=== PATIENT | male | born 1945 | race African-American/Black ===

== ENCOUNTER 2017-07-02 01:54 | Emergency (ER) | payer OTHER ==
[~2017-07-02] VITALS: Ht 180.3 cm; Wt 104.0 kg
[2017-07-02] MEDS ORDERED: DOXA2TAB PO (02:01)
[2017-07-02] MEDS ORDERED: CYM20 PO (02:02)
[2017-07-02] MEDS ORDERED: KETOROLAC 15MG/ML VIAL IM ONE (03:00)
[2017-07-02] MEDS ORDERED: DIAZEPAM 5 MG/ML 2ML CPJ IM ONE (03:00)
[2017-07-02] MEDS ORDERED: DIAZEPAM 5 MG/ML 2ML CPJ IM SCH (03:50)
[2017-07-02 04:25] VITALS: BP 146/84
== END 2017-07-02 05:22 | disposition home or self-care (01) ==
LOC: ER 01:54
DX: M62.838 Other muscle spasm (principal); M54.2 Cervicalgia; I10 Essential (primary) hypertension
CPT/HCPCS: 96372; 99284; J1885

== ENCOUNTER 2018-03-12 18:14 | Emergency (ER) | payer OTHER, MEDICARE ==
[~2018-03-12] VITALS: Ht 185.4 cm; Wt 118.0 kg
[~2018-03-12 18:14] MED LIST: CYM20 PO; DOXA2TAB PO
[2018-03-12] MEDS ORDERED: ONDANSETRON HCL 4MG/2ML INJ IV ONE (18:45)
[2018-03-12] MEDS ORDERED: MORPHINE SULFATE 4 MG/ML CPJ (NOT FOR IM USE) IV ONE ×2 (18:45→21:00)
[2018-03-12 19:21] LABS: HEMATOCRIT. 38.8 % (42.0-52.0); MEAN CORPUSCULAR HEMOGLOBIN 29.4 pg (28.0-32.0); MEAN CORPUSCULAR VOLUME 87.6 fL (80.0-94.0); PLATELET 292 x1000/uL (130-400); RED BLOOD CELL COUNT 4.43 mill/uL (4.7-6.1); RED CELL DISTRIBUTION WIDTH 13.9 % (11.6-14.6)
[2018-03-12 19:27] LABS: CHLORIDE 104 mEq/L (98-107)
[2018-03-12 21:25] LABS: PLATELET ESTIMATE NORMAL
[2018-03-12] MEDS ORDERED: METHYLPREDNISOLONE SOD SUCC 125 MG/2 ML VIAL IV ONE (22:45)
[2018-03-13 02:34] VITALS: BP 157/89
== END 2018-03-13 02:45 | disposition left against medical advice (07) ==
LOC: ER 18:14
DX: M54.5 Low back pain (principal); F17.200 Nicotine dependence, unspecified, uncomplicated; Z96.651 Presence of right artificial knee joint; Z98.1 Arthrodesis status
CPT/HCPCS: 36415; 51702; 72100; 72148; 80048; 85007; 85027; 96374; 96375; 96376; 99285; J2270; J2405; J2930

== ENCOUNTER 2021-03-03 18:12 | Emergency (ER) | payer MEDICARE, OTHER ==
[~2021-03-03] VITALS: Ht 182.9 cm; Wt 82.0 kg
[2021-03-03 21:07] LABS: BASOPHILS % 0.7 % (0.0-2.0); EOSINOPHILS % 0.9 % (0.0-5.0); HEMATOCRIT. 43.6 % (42.0-52.0); HEMOGLOBIN. 14.7 g/dL (14.0-18.0); LYMPHOCYTES % 22.5 % (20.0-50.0); MEAN CORPUSCULAR HEMOGLOBIN 30.1 pg (28.0-32.0); MEAN CORPUSCULAR VOLUME 89.6 fL (80.0-94.0); MEAN PLATELET VOLUME 8.4 fl (7.4-10.4); MONOCYTES % 6.4 % (2.0-8.0); NEUTROPHILS % 69.5 % (40.0-76.0); PLATELET 169 x1000/uL (130-400); RED BLOOD CELL COUNT 4.87 mill/uL (4.7-6.1); RED CELL DISTRIBUTION WIDTH 15.5 % (11.6-14.6)
[2021-03-03 21:09] LABS: CHLORIDE 113 mEq/L (98-107)
[2021-03-04 00:25] VITALS: BP 129/89
== END 2021-03-04 00:35 | disposition home or self-care (01) ==
LOC: ER 21:37
DX: R55 Syncope and collapse (principal); I10 Essential (primary) hypertension
CPT/HCPCS: 36415; 80048; 85025; 99285

== ENCOUNTER 2021-11-04 03:24 | Emergency (ER) | payer OTHER ==
[~2021-11-04] VITALS: Ht 180.3 cm; Wt 65.0 kg
[2021-11-04] MEDS ORDERED: PSEUDOEPHEDRINE HCL 30MG TABLET PO STA (04:51)
[2021-11-04 05:00] VITALS: BP 149/78
== END 2021-11-04 05:20 | disposition home or self-care (01) ==
LOC: ER 03:24
DX: R09.81 Nasal congestion (principal); Z20.822 Contact with and (suspected) exposure to COVID-19; Z98.890 Other specified postprocedural states
CPT/HCPCS: 71045; 87426; 99284

== ENCOUNTER 2023-01-12 17:39 | Emergency (ER) | payer OTHER ==
[~2023-01-12] VITALS: Ht 182.9 cm; Wt 87.0 kg
[~2023-01-12 17:39] MED LIST changes: +DOXA-14 PO; -DOXA2TAB PO
[2023-01-12 17:40] VITALS: BP 148/85; PULSE 65; RESP 18; TEMP 98.9; O2SAT 98
[2023-01-12 19:22] LABS: BASOPHILS % 0.3 % (0.0-2.0); EOSINOPHILS % 0.3 % (0.0-5.0); HEMATOCRIT. 40.9 % (42.0-52.0); HEMOGLOBIN. 13.8 g/dL (14.0-18.0); LYMPHOCYTES % 11.5 % (20.0-50.0); MEAN CORPUSCULAR HEMOGLOBIN 29.9 pg (28.0-32.0); MEAN CORPUSCULAR VOLUME 88.8 fL (80.0-94.0); MEAN PLATELET VOLUME 7.7 fl (7.4-10.4); MONOCYTES % 6.9 % (2.0-8.0); PLATELET 192 x1000/uL (130-400); RED BLOOD CELL COUNT 4.61 mill/uL (4.7-6.1); RED CELL DISTRIBUTION WIDTH 15.6 % (11.6-14.6)
[2023-01-12 19:25] LABS: CHLORIDE 107 mEq/L (98-107)
[2023-01-12] MEDS ORDERED: MAGNESIUM/ALUMINUM HYDROXIDE/SIMETHICONE 30ML UDC PO STA (23:16)
[2023-01-12] MEDS ORDERED: ONDANSETRON 4MG ODT PO STA (23:16)
[2023-01-12] MEDS ORDERED: VISCOUS LIDOCAINE 2% 15 ML UDC PO STA (23:16)
[2023-01-13] MEDS ORDERED: IBUP-2028 MT (00:43)
[2023-01-13] MEDS ORDERED: PROT40 MT (00:43)
[2023-01-13] MEDS ORDERED: ONDANSETRON 4MG ODT PO NR (01:15)
[2023-01-13] MEDS ORDERED: MAGNESIUM/ALUMINUM HYDROXIDE/SIMETHICONE 30ML UDC PO NR (01:15)
[2023-01-13] MEDS ORDERED: VISCOUS LIDOCAINE 2% 15 ML UDC PO NR (01:15)
[2023-01-13] MEDS ORDERED: LIDOCAINE HCL 20 MG/ML 100ML BOTTLE PO NR (01:45)
== END 2023-01-13 02:00 | disposition home or self-care (01) ==
LOC: ER 17:39
DX: K21.9 Gastro-esophageal reflux disease without esophagitis (principal); K76.89 Other specified diseases of liver; I10 Essential (primary) hypertension; Z98.890 Other specified postprocedural states
CPT/HCPCS: 36415; 71045; 76700; 80053; 85025; 93005; 99285; Q0162

== ENCOUNTER 2023-08-25 03:10 | Emergency (ER) | payer MEDICARE, OTHER ==
[~2023-08-25] VITALS: Ht 170.2 cm; Wt 84.0 kg
[~2023-08-25 03:10] MED LIST changes: +ARIP2TAB16 PO; -CYM20 PO; +DULO60CA64 PO; +IBUP-2028 MT; +LISI20TA31 PO; +PREG50CA64 PO; +PROT40 MT
[2023-08-25 03:12] VITALS: TEMP 98.4; O2SAT 100
[2023-08-25] MEDS ORDERED: GUAIFENESIN 600MG ER TABLET PO ONE (03:30)
[2023-08-25 04:09] LABS: BASOPHILS % 0.7 % (0.0-2.0); EOSINOPHILS % 2.2 % (0.0-5.0); HEMOGLOBIN. 11.8 g/dL (14.0-18.0); LYMPHOCYTES % 48.2 % (20.0-50.0); MEAN CORPUSCULAR HEMOGLOBIN 26.5 pg (28.0-32.0); MEAN CORPUSCULAR HGB CONC 32.7 g/dL (31.0-37.0); MEAN PLATELET VOLUME 7.1 fl (7.4-10.4); MONOCYTES % 13.2 % (2.0-8.0); NEUTROPHILS % 35.7 % (40.0-76.0); PLATELET 261 x1000/uL (130-400); RED BLOOD CELL COUNT 4.44 mill/uL (4.7-6.1); RED CELL DISTRIBUTION WIDTH 22.5 % (11.6-14.6); WHITE BLOOD COUNT 3.3 x1000/uL (4.5-11.0)
[2023-08-25 04:37] LABS: ADD RBC MORPHOLOGY YES; DIFFERENTIAL COMMENT 1
[2023-08-25 04:50] LABS: ALANINE AMINOTRANSFERASE 20 IU/L (10-49); ALBUMIN 4.1 g/dL (3.2-4.8); ASPARTATE AMINOTRANSFERASE 21 IU/L (<34); BILIRUBIN TOTAL 0.3 mg/dL (0.1-1.0); CALCIUM 9.7 mg/dL (8.7-10.4); CARBON DIOXIDE 27 mEq/L (21-32); CHLORIDE 107 mEq/L (98-107); ETHANOL BLOOD < 10 mg/dL (<10); GLUCOSE 95 mg/dL (70-105); POTASSIUM 3.8 mEq/L (3.5-5.1); PROTEIN TOTAL 7.2 g/dL (6.0-8.3); SODIUM 139 mEq/L (136-145); TROPONIN I HIGH SENSITIVITY 7 ng/L (3.0-53); UREA NITROGEN BLOOD 13 mg/dL (9-23)
[2023-08-25 05:06] LABS: ANISOCYTOSIS 1+; PLATELET ESTIMATE NORMAL
[2023-08-25 08:04] VITALS: BP 131/79; PULSE 96; RESP 15
== END 2023-08-25 08:39 | disposition short-term general hospital (02) ==
LOC: ER 03:10
DX: R06.09 Other forms of dyspnea (principal); I48.91 Unspecified atrial fibrillation; Z00.00 Encounter for general adult medical examination without abnormal findings; Z20.822 Contact with and (suspected) exposure to COVID-19
CPT/HCPCS: 36415; 71045; 80053; 80320; 83880; 84484; 85025; 87426; 93005; 99285; G0480

== ENCOUNTER 2024-03-23 10:41 | Inpatient (IN) | payer MEDICARE, OTHER ==
[~2024-03-23] VITALS: Ht 180.3 cm; Wt 102.1 kg
[~2024-03-23 10:41] MED LIST changes: +ALBU6.7H15 INH; +APIX5TAB PO; -ARIP2TAB16 PO; -DOXA-14 PO; -DULO60CA64 PO; +FINA5TAB11 PO; +FLUO-335 PO; +FLUT1BLS INH; +HYDR-4009 PO; -IBUP-2028 MT; -LISI20TA31 PO; -PREG50CA64 PO; +TAMS-11
[2024-03-23] MEDS ORDERED: METHYLPREDNISOLONE SOD SUCC 125MG/2ML (ACT-O-VIAL) IV STA (10:46)
[2024-03-23] MEDS ORDERED: IPRATROPIUM BROMIDE (0.02%) 0.5MG/2.5ML NEB HHN STA (10:46)
[2024-03-23] MEDS ORDERED: MAGNESIUM 2 G PREMIX 50 ML IV STA (10:46)
[2024-03-23] MEDS ORDERED: ALBUTEROL (0.083%) 2.5MG/3ML NEB HHN STA (10:46)
[2024-03-23 11:37] LABS: BASOPHILS % 0.4 % (0.0-2.0); EOSINOPHILS % 1.8 % (0.0-5.0); HEMATOCRIT. 35.6 % (42.0-52.0); HEMOGLOBIN. 11.3 g/dL (14.0-18.0); LYMPHOCYTES % 33.4 % (20.0-50.0); MEAN CORPUSCULAR HEMOGLOBIN 27.4 pg (28.0-32.0); MEAN CORPUSCULAR HGB CONC 31.6 g/dL (31.0-37.0); MEAN CORPUSCULAR VOLUME 86.7 fL (80.0-94.0); MEAN PLATELET VOLUME 7.1 fl (7.4-10.4); MONOCYTES % 13.1 % (2.0-8.0); NEUTROPHILS % 51.3 % (40.0-76.0); PLATELET 223 x1000/uL (130-400); RED BLOOD CELL COUNT 4.11 mill/uL (4.7-6.1); RED CELL DISTRIBUTION WIDTH 14.9 % (11.6-14.6); WHITE BLOOD COUNT 2.7 x1000/uL (4.5-11.0)
[2024-03-23 11:51] LABS: CHLORIDE 109 mEq/L (98-107); POTASSIUM 3.6 mEq/L (3.5-5.1); SODIUM 140 mEq/L (136-145)
[2024-03-23 11:57] LABS: GLUCOSE 104 mg/dL (70-105); UREA NITROGEN BLOOD 12 mg/dL (9-23)
[2024-03-23 11:58] LABS: TROPONIN I HIGH SENSITIVITY 7 ng/L (3.0-53)
[2024-03-23] MEDS ORDERED: IPRATROPIUM BROMIDE (0.02%) 0.5MG/2.5ML NEB HHN NR (12:45)
[2024-03-23] MEDS ORDERED: ALBUTEROL (0.083%) 2.5MG/3ML NEB HHN NR (12:45)
[2024-03-23 12:50] VITALS: PULSE 48; RESP 18; O2SAT 98
[2024-03-23 12:50] LABS: CARBON DIOXIDE 24 mEq/L (21-32)
[2024-03-23] MEDS: METHYLPREDNISOLONE SOD SUCC 125MG/2ML (ACT-O-VIAL) IV NR (12:51)
[2024-03-23] MEDS: MAGNESIUM 2 G PREMIX 50 ML IV NR (12:51)
[2024-03-23] MEDS ORDERED: ENOXAPARIN 40MG/0.4ML SYR SUBCUT SCH (13:15)
[2024-03-23] MEDS ORDERED: GUAIFENESIN 200MG/10ML SUGAR FREE UDC PO PRN (13:15)
[2024-03-23] MEDS ORDERED: MAGNESIUM/ALUMINUM HYDROXIDE/SIMETHICONE 30ML UDC PO PRN (13:15)
[2024-03-23] MEDS ORDERED: ACETAMINOPHEN 325MG TABLET PO PRN ×2 (13:15)
[2024-03-23] MEDS ORDERED: ONDANSETRON HCL 4MG/2ML INJ IV PRN (13:15)
[2024-03-23] MEDS ORDERED: DOCUSATE SODIUM 100MG CAPSULE PO PRN (13:15)
[2024-03-23] MEDS ORDERED: KETOROLAC 15MG/ML VIAL IV PRN (13:15)
[2024-03-23] MEDS ORDERED: IPRATROPIUM/ALBUTEROL 0.5-3(2.5)MG/3ML NEB NEB PRN (13:15)
[2024-03-23 13:35] LABS: VITAMIN B12 SERUM 1100 pg/mL (211-911)
[2024-03-23 13:36] LABS: FOLIC ACID (FOLATE) SERUM 17.64 ng/mL (>5.38)
[2024-03-23 13:47] LABS: BG BASE EXCESS 0.7 mmol/L (-2.0-3.0); BG CARBOXYHEMOGLOBIN 1.4 % (0.5-1.5); BG DEOXYHEMOGLOBIN 0.8 % (0.0-5.0); BG FRACTION INSPIRED OXYGEN 60; BG HCO3 ACT 24.6 mmol/L (21.0-28.0); BG METHEMOGLOBIN 0.3 % (0.5-1.5); BG OXYGEN SATURATION 99.2 % (94.0-98.0); BG OXYHEMOGLOBIN 97.5 % (94.0-98.0); BG PCO2 37.2 mmHg (35.0-48.0); BG PH 7.438 (7.350-7.450); BG PO2 131.6 mmHg (83.0-108.0); BG TOTAL HEMOGLOBIN 13.5 g/dL (13.5-17.5); BG VENT MODE HHN
[2024-03-23] MEDS: AZITHROMYCIN 500MG/250ML 250 ML IV SCH (14:28)
[2024-03-23] MEDS: METHYLPREDNISOLONE SOD SUCC 125MG/2ML (ACT-O-VIAL) IV SCH (14:28)
[2024-03-23] MEDS: NITROGLYCERIN 0.4MG TABLET SL SL PRN (14:56)
[2024-03-23 16:04] LABS: IRON 44 ug/dL (65-175)
[2024-03-23 16:07] LABS: TOTAL IRON BINDING CAPACITY 237 ug/dl (250-425)
[2024-03-23 16:09] LABS: T4 FREE 1.07 ng/dL (0.89-1.76)
[2024-03-23 16:10] LABS: THYROID STIMULATING HORMONE 0.81 uIU/mL (0.55-4.78)
[2024-03-23 17:40] LABS: CREATINE KINASE MB FRACTION 3.2 ng/mL (0.5-3.6)
[2024-03-23] MEDS: ENOXAPARIN 30MG/0.3ML SYR SUBCUT SCH (20:01)
[2024-03-23 20:37] VITALS: BP 135/58; PULSE 53; RESP 17; TEMP 36.8628
[2024-03-23 20:40] VITALS: BP 138/58; PULSE 53; RESP 20; TEMP 36.83628; O2SAT 100
[2024-03-23 20:52] VITALS: PULSE 56; RESP 18; O2SAT 99
[2024-03-23] MEDS: IPRATROPIUM/ALBUTEROL 0.5-3(2.5)MG/3ML NEB HHN SCH (20:52)
[2024-03-23 21:43] LABS: *AMPHETAMINES SCREEN URINE NEGATIVE (NEGATIVE); *BARBITURATES SCREEN URINE NEGATIVE (NEGATIVE); *BENZODIAZEPINES SCREEN URINE NEGATIVE (NEGATIVE); *COCAINE SCREEN URINE NEGATIVE (NEGATIVE); METHADONE URINE SCREEN NEGATIVE (NEGATIVE)
[2024-03-23 21:44] LABS: CANNABINOID URINE SCREEN PRESUMPTIVE POSITIVE (NEGATIVE); ECSTASY MDMA SCREEN URINE NEGATIVE (NEGATIVE); OPIATES URINE SCREEN NEGATIVE (NEGATIVE); PHENCYCLIDINE URINE SCREEN NEGATIVE (NEGATIVE)
[2024-03-23 22:11] LABS: CREATINE KINASE MB FRACTION 2.9 ng/mL (0.5-3.6)
[2024-03-23] MEDS: FAMOTIDINE 20MG TABLET PO SCH (22:11)
[2024-03-23] MEDS: GUAIFENESIN 600MG ER TABLET PO SCH (22:12)
[2024-03-24] VITALS (12 sets, daily range): BP systolic 131–157; BP diastolic 69–91; PULSE 53–84; RESP 15–28; TEMP 36.22512–37.11408; O2SAT 98–100
[2024-03-24 06:45] LABS: HEMATOCRIT. 35.2 % (42.0-52.0); HEMOGLOBIN. 11.3 g/dL (14.0-18.0); MEAN CORPUSCULAR HEMOGLOBIN 27.4 pg (28.0-32.0); MEAN CORPUSCULAR HGB CONC 32.2 g/dL (31.0-37.0); MEAN CORPUSCULAR VOLUME 85.1 fL (80.0-94.0); MEAN PLATELET VOLUME 7.4 fl (7.4-10.4); PLATELET 227 x1000/uL (130-400); RED BLOOD CELL COUNT 4.13 mill/uL (4.7-6.1); RED CELL DISTRIBUTION WIDTH 14.9 % (11.6-14.6); WHITE BLOOD COUNT 8.4 x1000/uL (4.5-11.0)
[2024-03-24 06:49] LABS: CHLORIDE 108 mEq/L (98-107); SODIUM 139 mEq/L (136-145)
[2024-03-24 06:50] LABS: CALCIUM 9.6 mg/dL (8.7-10.4); CARBON DIOXIDE 23 mEq/L (21-32)
[2024-03-24 06:55] LABS: CREATININE 0.9 mg/dL (0.6-1.3); GLUCOSE 118 mg/dL (70-105); UREA NITROGEN BLOOD 13 mg/dL (9-23)
[2024-03-24 06:57] LABS: ALANINE AMINOTRANSFERASE 21 IU/L (10-49); ASPARTATE AMINOTRANSFERASE 19 IU/L (<34); BILIRUBIN TOTAL 0.5 mg/dL (0.1-1.0); PHOSPHORUS 2.4 mg/dL (2.5-4.9); PROTEIN TOTAL 7.4 g/dL (6.0-8.3)
[2024-03-24 07:01] LABS: HEPATITIS B SURFACE ANTIGEN NEGATIVE (Negative)
[2024-03-24 07:14] LABS: DIFFERENTIAL COMMENT 1
[2024-03-24 07:23] LABS: HEPATITIS C AB NON REACTIVE (Neg) (Negative)
[2024-03-24] MEDS: ASPIRIN 81MG EC TABLET PO SCH (09:07)
[2024-03-24] MEDS: AZITHROMYCIN 500MG/250ML 250 ML IV SCH (13:39)
[2024-03-24] MEDS: ZOLPIDEM TARTRATE 5MG TABLET PO PRN (22:22)
[2024-03-25] VITALS (13 sets, daily range): BP systolic 144–158; BP diastolic 72–88; PULSE 54–83; RESP 14–22; TEMP 36.22512–37.00296; O2SAT 96–100
[2024-03-26] VITALS (8 sets, daily range): BP systolic 131–147; BP diastolic 74–88; PULSE 49–66; RESP 14–23; TEMP 35.78064–36.83628; O2SAT 96–100
[2024-03-26] MEDS: CLONIDINE 0.1MG TABLET PO PRN (08:21)
[2024-03-26] MEDS: AZITHROMYCIN 500 MG TABLET PO SCH (08:21)
== END 2024-03-26 14:25 | DRG 189 ==
LOC: ER 10:55 → 5WST 12:05 → EDBEDREQ 12:36 → EDBEDREQTM 12:36 → 3WST 20:17
PROVIDERS: ADMIT Internal Medicine; ATTEND Internal Medicine
DX: J96.01 Acute respiratory failure with hypoxia (principal); J44.1 Chronic obstructive pulmonary disease with (acute) exacerbation; J45.901 Unspecified asthma with (acute) exacerbation; E66.9 Obesity, unspecified; Z68.31 Body mass index [BMI] 31.0-31.9, adult; Z20.822 Contact with and (suspected) exposure to COVID-19; F41.9 Anxiety disorder, unspecified; K21.9 Gastro-esophageal reflux disease without esophagitis; I11.0 Hypertensive heart disease with heart failure; I50.9 Heart failure, unspecified; I48.91 Unspecified atrial fibrillation; D63.8 Anemia in other chronic diseases classified elsewhere
CPT/HCPCS: 36415; 36600; 71045; 80048; 80053; 80305; 82375; 82550; 82553; 82607; 82746; 82805; 83540; 83550; 83735; 83880; 84100; 84439; 84443; 84484; 85025; 86705; 87340; 87426; 93005; 93306; 93970; 94640; 97161; 97166; 99285; C1893; J0456; J1650; J2919; J3475

== ENCOUNTER 2024-03-28 14:10 | Inpatient (IN) | payer MEDICARE, OTHER ==
[~2024-03-28] VITALS: Ht 180.3 cm; Wt 100.0 kg
[2024-03-28] MEDS ORDERED: NITROGLYCERIN 0.4MG TABLET SL SL PRN (14:30)
[2024-03-28] MEDS: SODIUM CHLORIDE 0.9% 1,000 ML IV ONE (14:43)
[2024-03-28] MEDS: ASPIRIN 81MG TABLET PO ONE (14:43)
[2024-03-28] MEDS: METHYLPREDNISOLONE SOD SUCC 125MG/2ML (ACT-O-VIAL) IV STA (14:43)
[2024-03-28] MEDS: ALBUTEROL (0.083%) 2.5MG/3ML NEB HHN STA (14:58)
[2024-03-28] MEDS: IPRATROPIUM BROMIDE (0.02%) 0.5MG/2.5ML NEB HHN STA (14:59)
[2024-03-28 15:02] VITALS: PULSE 118; RESP 18; O2SAT 98
[2024-03-28 16:21] LABS: CHLORIDE 102 mEq/L (98-107); POTASSIUM 3.8 mEq/L (3.5-5.1); SODIUM 136 mEq/L (136-145)
[2024-03-28 16:22] LABS: CALCIUM 10.3 mg/dL (8.7-10.4); CARBON DIOXIDE 25 mEq/L (21-32)
[2024-03-28 16:27] LABS: CREATININE 1.2 mg/dL (0.6-1.3); GLUCOSE 111 mg/dL (70-105); UREA NITROGEN BLOOD 19 mg/dL (9-23)
[2024-03-28 16:29] LABS: ALANINE AMINOTRANSFERASE 29 IU/L (10-49); ALBUMIN 4.5 g/dL (3.2-4.8); ASPARTATE AMINOTRANSFERASE 20 IU/L (<34); BILIRUBIN TOTAL 0.7 mg/dL (0.1-1.0); PROTEIN TOTAL 8.2 g/dL (6.0-8.3); TROPONIN I HIGH SENSITIVITY 8 ng/L (3.0-53)
[2024-03-28 16:37] LABS: D-DIMER 0.55 mg/L FEU (<0.50); PROTHROMBIN TIME 11.3 sec (9.6-11.0)
[2024-03-28 17:18] LABS: HEMATOCRIT. 40.2 % (42.0-52.0); HEMOGLOBIN. 13.1 g/dL (14.0-18.0); MEAN CORPUSCULAR HEMOGLOBIN 27.8 pg (28.0-32.0); MEAN CORPUSCULAR HGB CONC 32.6 g/dL (31.0-37.0); MEAN CORPUSCULAR VOLUME 85.3 fL (80.0-94.0); MEAN PLATELET VOLUME 7.9 fl (7.4-10.4); PLATELET 234 x1000/uL (130-400); RED BLOOD CELL COUNT 4.72 mill/uL (4.7-6.1); RED CELL DISTRIBUTION WIDTH 15.3 % (11.6-14.6); WHITE BLOOD COUNT 4.2 x1000/uL (4.5-11.0)
[2024-03-28 17:21] LABS: DIFFERENTIAL COMMENT 1
[2024-03-28 17:29] LABS: D-DIMER 0.37 mg/L FEU (<0.50); PARTIAL THROMBOPLASTIN TIME 30.6 sec (23.4-31.0); PROTHROMBIN TIME 11.5 sec (9.6-11.0)
[2024-03-28 17:33] LABS: TROPONIN I HIGH SENSITIVITY 6 ng/L (3.0-53)
[2024-03-28 17:55] LABS: PLATELET ESTIMATE NORMAL
[2024-03-28] MEDS: ENOXAPARIN 80MG/0.8ML SYR SUBCUT ONE (18:24)
[2024-03-28] MEDS ORDERED: DOCUSATE SODIUM 100MG CAPSULE PO PRN (20:00)
[2024-03-28] MEDS ORDERED: ACETAMINOPHEN 325MG TABLET PO PRN ×2 (20:00)
[2024-03-28] MEDS ORDERED: IPRATROPIUM/ALBUTEROL 0.5-3(2.5)MG/3ML NEB HHN PRN (20:00)
[2024-03-28] MEDS ORDERED: GUAIFENESIN 200MG/10ML SUGAR FREE UDC PO PRN (20:00)
[2024-03-28] MEDS ORDERED: ONDANSETRON HCL 4MG/2ML INJ IV PRN (20:00)
[2024-03-28] MEDS ORDERED: CLONIDINE 0.1MG TABLET PO PRN (20:00)
[2024-03-28] MEDS ORDERED: MAGNESIUM/ALUMINUM HYDROXIDE/SIMETHICONE 30ML UDC PO PRN (20:00)
[2024-03-28] MEDS: IOHEXOL-350 100 ML BOTTLE ONE (21:17)
[2024-03-28] MEDS: AZITHROMYCIN 500MG/250ML 250 ML IV SCH (21:18)
[2024-03-28 21:49] VITALS: BP 119/62; PULSE 68; RESP 18; TEMP 37.11408; O2SAT 100
[2024-03-28] MEDS: METHYLPREDNISOLONE SOD SUCC 40MG/ML (ACT-O-VIAL) IV SCH (22:04)
[2024-03-28] MEDS: FLUOXETINE HCL 10 MG CAPSULE PO SCH (22:58)
[2024-03-28 23:21] VITALS: BP 119/62; PULSE 68; RESP 18; TEMP 37.1408
[2024-03-28 23:32] LABS: CREATINE KINASE 57 IU/L (46-171)
[2024-03-28] MEDS: IPRATROPIUM/ALBUTEROL 0.5-3(2.5)MG/3ML NEB HHN SCH (23:40)
[2024-03-28 23:54] VITALS: PULSE 85; RESP 18; O2SAT 97
[2024-03-29] VITALS (8 sets, daily range): BP systolic 117–140; BP diastolic 64–95; PULSE 55–86; RESP 15–24; TEMP 36.05844–37.11408; O2SAT 95–100
[2024-03-29] MEDS: DIPHENHYDRAMINE 25MG CAPSULE PO PRN (02:23)
[2024-03-29] MEDS: PANTOPRAZOLE 40MG DR TABLET PO SCH (05:41)
[2024-03-29] MEDS: ENOXAPARIN 80MG/0.8ML SYR SUBCUT SCH (05:42)
[2024-03-29 06:30] LABS: HEMATOCRIT. 37.8 % (42.0-52.0); HEMOGLOBIN. 12.4 g/dL (14.0-18.0); MEAN CORPUSCULAR HGB CONC 32.8 g/dL (31.0-37.0); MEAN CORPUSCULAR VOLUME 85.2 fL (80.0-94.0); PLATELET 238 x1000/uL (130-400); RED BLOOD CELL COUNT 4.43 mill/uL (4.7-6.1); RED CELL DISTRIBUTION WIDTH 15.2 % (11.6-14.6); WHITE BLOOD COUNT 8.7 x1000/uL (4.5-11.0)
[2024-03-29 06:34] LABS: CARBON DIOXIDE 23 mEq/L (21-32); CHLORIDE 105 mEq/L (98-107); POTASSIUM 4.3 mEq/L (3.5-5.1); SODIUM 137 mEq/L (136-145)
[2024-03-29 06:35] LABS: CALCIUM 9.9 mg/dL (8.7-10.4)
[2024-03-29 06:40] LABS: CREATINE KINASE 52 IU/L (46-171); CREATININE 1.3 mg/dL (0.6-1.3); GLUCOSE 151 mg/dL (70-105); TRIGLYCERIDE 49 mg/dL (0-150); UREA NITROGEN BLOOD 21 mg/dL (9-23)
[2024-03-29 06:41] LABS: LDL CHOLESTEROL 83 mg/dL (5-100)
[2024-03-29 06:42] LABS: CHOLESTEROL 165 mg/dL (<200); HDL CHOLESTEROL 67 mg/dL (>55); THYROID STIMULATING HORMONE 0.56 uIU/mL (0.55-4.78)
[2024-03-29 06:48] LABS: DIFFERENTIAL COMMENT 1
[2024-03-29] MEDS: FINASTERIDE 5MG TABLET PO SCH (09:26)
[2024-03-29 16:04] LABS: PLATELET ESTIMATE NORMAL
[2024-03-29] MEDS ORDERED: ENOXAPARIN 40MG/0.4ML SYR SUBCUT SCH (18:00)
[2024-03-29] MEDS: AZITHROMYCIN 500MG/250ML 250 ML IV SCH (23:05)
[2024-03-30] VITALS (7 sets, daily range): BP systolic 111–127; BP diastolic 62–77; PULSE 55–81; RESP 16–19; TEMP 36.114–36.72516; O2SAT 20–99
[2024-03-30] MEDS: APIXABAN 5 MG TABLET PO SCH (10:05)
[2024-03-30] MEDS ORDERED: METH4TAB95 MT (15:40)
[2024-03-30] MEDS ORDERED: AZIT500T8 PO (15:40)
[2024-03-30] MEDS ORDERED: AZITHROMYCIN 500 MG TABLET PO SCH (21:00)
[2024-03-31] MEDS ORDERED: FAMOTIDINE 20MG TABLET PO SCH (09:00)
== END 2024-03-30 18:10 | disposition home health service (06) | DRG 189 ==
LOC: ER 14:10 → EDBEDREQ 18:18 → EDBEDREQTM 18:18 → 7EST 21:55
PROVIDERS: ADMIT Internal Medicine; ATTEND Internal Medicine
DX: J96.01 Acute respiratory failure with hypoxia (principal); J44.1 Chronic obstructive pulmonary disease with (acute) exacerbation; J96.02 Acute respiratory failure with hypercapnia; F17.210 Nicotine dependence, cigarettes, uncomplicated; G47.33 Obstructive sleep apnea (adult) (pediatric); I10 Essential (primary) hypertension; I48.91 Unspecified atrial fibrillation; K21.9 Gastro-esophageal reflux disease without esophagitis; F41.9 Anxiety disorder, unspecified; Z96.651 Presence of right artificial knee joint; G57.93 Unspecified mononeuropathy of bilateral lower limbs; N40.0 Benign prostatic hyperplasia without lower urinary tract symptoms; Z79.01 Long term (current) use of anticoagulants; Z79.51 Long term (current) use of inhaled steroids; Z79.899 Other long term (current) drug therapy; Z87.440 Personal history of urinary (tract) infections
CPT/HCPCS: 36415; 71045; 71275; 80048; 80053; 80061; 82550; 83880; 84443; 84484; 85025; 85379; 93005; 93970; 94640; 97162; 97166; 97535; 99291; J0456; J1650; J2919; J2920; J7030; Q0163; Q9967

== ENCOUNTER 2024-04-03 11:52 | Emergency (ER) | payer MEDICARE, OTHER ==
[~2024-04-03] VITALS: Ht 182.9 cm; Wt 104.0 kg
[~2024-04-03 11:52] MED LIST changes: +AZIT500T8 PO; +METH4TAB95 MT
[2024-04-03 12:09] VITALS: O2SAT 99
[2024-04-03 14:09] LABS: HEMATOCRIT. 38.3 % (42.0-52.0); HEMOGLOBIN. 12.5 g/dL (14.0-18.0); MEAN CORPUSCULAR HEMOGLOBIN 27.8 pg (28.0-32.0); MEAN CORPUSCULAR HGB CONC 32.6 g/dL (31.0-37.0); MEAN CORPUSCULAR VOLUME 85.1 fL (80.0-94.0); MEAN PLATELET VOLUME 7.5 fl (7.4-10.4); PLATELET 220 x1000/uL (130-400); RED CELL DISTRIBUTION WIDTH 15.2 % (11.6-14.6); WHITE BLOOD COUNT 4.5 x1000/uL (4.5-11.0)
[2024-04-03 14:10] LABS: CHLORIDE 103 mEq/L (98-107); POTASSIUM 3.8 mEq/L (3.5-5.1); SODIUM 135 mEq/L (136-145)
[2024-04-03 14:11] LABS: CALCIUM 9.7 mg/dL (8.7-10.4); CARBON DIOXIDE 27 mEq/L (21-32)
[2024-04-03 14:12] LABS: DIFFERENTIAL COMMENT 1
[2024-04-03 14:16] LABS: CREATININE 1.2 mg/dL (0.6-1.3); GLUCOSE 133 mg/dL (70-105); UREA NITROGEN BLOOD 12 mg/dL (9-23)
[2024-04-03 14:18] LABS: ACETAMINOPHEN < 2 ug/mL (10-30)
[2024-04-03 14:22] LABS: ETHANOL BLOOD < 10 mg/dL (<10)
[2024-04-03 14:44] LABS: PLATELET ESTIMATE NORMAL
[2024-04-03 14:53] LABS: CLARITY URINE CLEAR (CLEAR); COLOR URINE YELLOW (YELLOW); GLUCOSE URINE NEGATIVE (NEGATIVE); KETONES URINE NEGATIVE (NEGATIVE); LEUKOCYTE ESTERASE URINE NEGATIVE (NEGATIVE); NITRITE URINE NEGATIVE (NEGATIVE); OCCULT BLOOD URINE NEGATIVE (NEGATIVE); PROTEIN URINE NEGATIVE (NEGATIVE); SPECIFIC GRAVITY URINE 1.012 (1.005-1.030); UROBILINOGEN URINE 0.2 E.U./dL (0.2-1.0)
[2024-04-03 15:14] LABS: *AMPHETAMINES SCREEN URINE NEGATIVE (NEGATIVE); *BARBITURATES SCREEN URINE NEGATIVE (NEGATIVE); *BENZODIAZEPINES SCREEN URINE NEGATIVE (NEGATIVE)
[2024-04-03 15:15] LABS: *COCAINE SCREEN URINE NEGATIVE (NEGATIVE); CANNABINOID URINE SCREEN NEGATIVE (NEGATIVE); ECSTASY MDMA SCREEN URINE NEGATIVE (NEGATIVE); METHADONE URINE SCREEN NEGATIVE (NEGATIVE); OPIATES URINE SCREEN NEGATIVE (NEGATIVE); PHENCYCLIDINE URINE SCREEN NEGATIVE (NEGATIVE)
[2024-04-04 09:46] VITALS: BP 128/84; PULSE 74; RESP 18; TEMP 36.94740; O2SAT 99
== END 2024-04-04 12:19 | disposition home or self-care (01) ==
LOC: ER 11:52
DX: F32.9 Major depressive disorder, single episode, unspecified (principal); R45.89 Other symptoms and signs involving emotional state; I48.91 Unspecified atrial fibrillation; J44.9 Chronic obstructive pulmonary disease, unspecified; I10 Essential (primary) hypertension; F41.9 Anxiety disorder, unspecified; Z79.899 Other long term (current) drug therapy; Z20.822 Contact with and (suspected) exposure to COVID-19
CPT/HCPCS: 36415; 80048; 80305; 80307; 80320; 80329; 81003; 85025; 87426; 99285; G0480

== ENCOUNTER 2024-04-08 23:23 | Emergency (ER) | payer MEDICARE, OTHER ==
[~2024-04-08] VITALS: Ht 180.3 cm; Wt 70.0 kg
[2024-04-08 23:31] VITALS: TEMP 97.5; O2SAT 99
[2024-04-09 00:02] LABS: BASOPHILS % 0.5 % (0.0-2.0); EOSINOPHILS % 0.3 % (0.0-5.0); HEMATOCRIT. 39.2 % (42.0-52.0); HEMOGLOBIN. 12.8 g/dL (14.0-18.0); LYMPHOCYTES % 18.3 % (20.0-50.0); MEAN CORPUSCULAR HEMOGLOBIN 27.9 pg (28.0-32.0); MEAN CORPUSCULAR HGB CONC 32.6 g/dL (31.0-37.0); MEAN CORPUSCULAR VOLUME 85.6 fL (80.0-94.0); NEUTROPHILS % 71.9 % (40.0-76.0); PLATELET 203 x1000/uL (130-400); RED BLOOD CELL COUNT 4.58 mill/uL (4.7-6.1); WHITE BLOOD COUNT 3.6 x1000/uL (4.5-11.0)
[2024-04-09 00:08] LABS: CHLORIDE 108 mEq/L (98-107); POTASSIUM 4.5 mEq/L (3.5-5.1); SODIUM 138 mEq/L (136-145)
[2024-04-09 00:09] LABS: CALCIUM 9.5 mg/dL (8.7-10.4); CARBON DIOXIDE 25 mEq/L (21-32)
[2024-04-09 00:14] LABS: CREATININE 1.2 mg/dL (0.6-1.3); GLUCOSE 127 mg/dL (70-105); UREA NITROGEN BLOOD 14 mg/dL (9-23)
[2024-04-09 00:15] LABS: TROPONIN I HIGH SENSITIVITY 10 ng/L (3.0-53)
[2024-04-09] MEDS: SODIUM CHLORIDE 0.9% 1,000 ML IV ONE (00:35)
[2024-04-09 00:36] VITALS: BP 162/87; PULSE 100; RESP 20; O2SAT 98
[2024-04-09 00:44] LABS: ETHANOL BLOOD < 10 mg/dL (<10)
[2024-04-09 02:07] LABS: TROPONIN I HIGH SENSITIVITY 11 ng/L (3.0-53)
== END 2024-04-09 03:40 | disposition short-term general hospital (02) ==
LOC: ER 23:23
DX: T43.651A Poisoning by methamphetamines accidental (unintentional), initial encounter (principal); R51.9 Headache, unspecified; I48.91 Unspecified atrial fibrillation; I10 Essential (primary) hypertension; Y92.9 Unspecified place or not applicable
CPT/HCPCS: 80048; 80320; 83605; 85025; 84484 ×2; 36415 ×2; 71045; 70450; 99285; 96360; J7030; G0480

== ENCOUNTER 2024-07-22 13:44 | Emergency (ER) | payer OTHER ==
[~2024-07-22] VITALS: Ht 182.9 cm; Wt 87.0 kg
[2024-07-22] MEDS ORDERED: lasix (13:55)
[2024-07-22 13:58] VITALS: O2SAT 97
[2024-07-22 15:47] LABS: BASOPHILS % 0.6 % (0.0-2.0); EOSINOPHILS % 0.9 % (0.0-5.0); HEMOGLOBIN. 12.5 g/dL (14.0-18.0); LYMPHOCYTES % 30.7 % (20.0-50.0); MEAN CORPUSCULAR HEMOGLOBIN 27.8 pg (28.0-32.0); MEAN PLATELET VOLUME 7.1 fl (7.4-10.4); MONOCYTES % 11.7 % (2.0-8.0); NEUTROPHILS % 56.1 % (40.0-76.0); PLATELET 246 x1000/uL (130-400); RED BLOOD CELL COUNT 4.48 mill/uL (4.7-6.1); RED CELL DISTRIBUTION WIDTH 20.2 % (11.6-14.6); WHITE BLOOD COUNT 3.2 x1000/uL (4.5-11.0)
[2024-07-22 15:49] LABS: CHLORIDE 104 mEq/L (98-107); SODIUM 139 mEq/L (136-145)
[2024-07-22 15:50] LABS: CARBON DIOXIDE 30 mEq/L (21-32)
[2024-07-22 15:51] LABS: CALCIUM 9.8 mg/dL (8.7-10.4)
[2024-07-22 15:55] LABS: CREATININE 1.3 mg/dL (0.6-1.3)
[2024-07-22 15:56] LABS: GLUCOSE 103 mg/dL (70-105); TROPONIN I HIGH SENSITIVITY 6 ng/L (3.0-53); UREA NITROGEN BLOOD 13 mg/dL (9-23)
[2024-07-22 15:57] LABS: ALANINE AMINOTRANSFERASE 15 IU/L (10-49); ALBUMIN 4.3 g/dL (3.2-4.8); ASPARTATE AMINOTRANSFERASE 19 IU/L (<34)
[2024-07-22 15:58] LABS: BILIRUBIN DIRECT 0.1 mg/dL (<=3.0); BILIRUBIN TOTAL 0.5 mg/dL (0.1-1.0); PROTEIN TOTAL 7.3 g/dL (6.0-8.3)
[2024-07-22 20:09] LABS: TROPONIN I HIGH SENSITIVITY 9 ng/L (3.0-53)
[2024-07-22 20:10] VITALS: BP 140/83; PULSE 60; RESP 17; TEMP 36.83628; O2SAT 95
== END 2024-07-22 20:38 | disposition short-term general hospital (02) ==
LOC: ER 13:48
DX: R42 Dizziness and giddiness (principal); I10 Essential (primary) hypertension; J44.9 Chronic obstructive pulmonary disease, unspecified; F15.90 Other stimulant use, unspecified, uncomplicated; Z20.822 Contact with and (suspected) exposure to COVID-19; Z79.01 Long term (current) use of anticoagulants; Z79.899 Other long term (current) drug therapy; Z79.51 Long term (current) use of inhaled steroids
CPT/HCPCS: 80076; 80048; 83880; 83690; 85025; 84484; 87804 ×2; 36415; 71045; 74176; 99285; 87426; Z7610 ×3

== ENCOUNTER 2024-10-06 21:44 | Emergency (ER) | payer MEDICARE, OTHER ==
[~2024-10-06] VITALS: Ht 182.9 cm; Wt 90.0 kg
[~2024-10-06 21:44] MED LIST changes: +AMLO5TAB88 PO; -AZIT500T8 PO; +LISI10TA26 PO; -METH4TAB95 MT
[2024-10-06] MEDS: METHYLPREDNISOLONE SOD SUCC 125MG/2ML (ACT-O-VIAL) IV STA (22:30)
[2024-10-06] MEDS: MAGNESIUM 2 G PREMIX 50 ML IV ONE (22:30)
[2024-10-06 22:31] LABS: BASOPHILS % 0.6 % (0.0-2.0); EOSINOPHILS % 1.2 % (0.0-5.0); HEMATOCRIT. 40.7 % (42.0-52.0); HEMOGLOBIN. 13.1 g/dL (14.0-18.0); LYMPHOCYTES % 41.7 % (20.0-50.0); MEAN CORPUSCULAR HEMOGLOBIN 27.8 pg (28.0-32.0); MEAN CORPUSCULAR HGB CONC 32.3 g/dL (31.0-37.0); MEAN CORPUSCULAR VOLUME 86.2 fL (80.0-94.0); MEAN PLATELET VOLUME 7.3 fl (7.4-10.4); MONOCYTES % 8.4 % (2.0-8.0); NEUTROPHILS % 48.1 % (40.0-76.0); PLATELET 207 x1000/uL (130-400); RED BLOOD CELL COUNT 4.72 mill/uL (4.7-6.1); RED CELL DISTRIBUTION WIDTH 16.8 % (11.6-14.6)
[2024-10-06 22:36] VITALS: PULSE 67; RESP 20; O2SAT 99
[2024-10-06 22:36] LABS: CHLORIDE 101 mEq/L (98-107); SODIUM 139 mEq/L (136-145)
[2024-10-06] MEDS: IPRATROPIUM BROMIDE (0.02%) 0.5MG/2.5ML NEB HHN STA (22:36)
[2024-10-06] MEDS: ALBUTEROL (0.083%) 2.5MG/3ML NEB HHN SCH (22:36)
[2024-10-06 22:37] LABS: CALCIUM 10.1 mg/dL (8.7-10.4); CARBON DIOXIDE 29 mEq/L (21-32)
[2024-10-06 22:42] LABS: CREATININE 1.1 mg/dL (0.6-1.3); GLUCOSE 114 mg/dL (70-105); TROPONIN I HIGH SENSITIVITY 8 ng/L (3.0-53); UREA NITROGEN BLOOD 11 mg/dL (9-23)
[2024-10-06 22:55] VITALS: PULSE 70; RESP 18; O2SAT 100
[2024-10-06 23:05] VITALS: PULSE 80; RESP 16; O2SAT 100
[2024-10-06] MEDS: CEFTRIAXONE 1GM/50ML 50 ML IV NR (23:24)
[2024-10-07] MEDS: AZITHROMYCIN 500MG/250ML 250 ML IV NR (00:12)
[2024-10-07 02:21] LABS: TROPONIN I HIGH SENSITIVITY 6 ng/L (3.0-53)
[2024-10-07] MEDS ORDERED: ACETAMINOPHEN 325MG TABLET PO PRN ×2 (03:00)
[2024-10-07] MEDS ORDERED: GUAIFENESIN 200MG/10ML SUGAR FREE UDC PO PRN (03:00)
[2024-10-07] MEDS ORDERED: IPRATROPIUM/ALBUTEROL 0.5-3(2.5)MG/3ML NEB HHN PRN (03:00)
[2024-10-07 03:47] VITALS: PULSE 88; RESP 18; O2SAT 97
[2024-10-07] MEDS: BUDESONIDE 0.5MG/2ML NEB HHN SCH (03:47)
[2024-10-07] MEDS: IPRATROPIUM/ALBUTEROL 0.5-3(2.5)MG/3ML NEB HHN SCH (03:47)
[2024-10-07] MEDS ORDERED: METHYLPREDNISOLONE SOD SUCC 40MG/ML (ACT-O-VIAL) IV SCH (06:00)
[2024-10-07 06:03] VITALS: BP 144/89; PULSE 96; RESP 21; TEMP 36.9; O2SAT 97
[2024-10-07] MEDS ORDERED: ENOXAPARIN 40MG/0.4ML SYR SUBCUT SCH (09:00)
[2024-10-07] MEDS ORDERED: AZITHROMYCIN 500MG/250ML 250 ML IV SCH (23:00)
== END 2024-10-07 06:27 | disposition short-term general hospital (02) ==
LOC: ER 21:44 → EDBEDREQDT 10-07 03:20 → EDBEDREQTM 10-07 03:20 → EDBEDREQ 10-07 03:20 → ER 10-07 06:27
DX: J44.1 Chronic obstructive pulmonary disease with (acute) exacerbation (principal); I48.91 Unspecified atrial fibrillation; I10 Essential (primary) hypertension; Z79.01 Long term (current) use of anticoagulants; Z79.51 Long term (current) use of inhaled steroids; Z79.899 Other long term (current) drug therapy
CPT/HCPCS: 80048; 83880; 83605; 85025; 84484 ×2; 36415 ×2; 71045; 94640 ×2; 96365; 96375 ×2; 99291; J0456; J0696; J3475; J2919; J7626